=== PATIENT | male | born 1955 | race Hispanic/Latino ===

== ENCOUNTER 2016-12-13 16:18 | Emergency (ER) | payer MEDICAID ==
--- NOTE | 2016-12-13 19:35 | C.PDOC ---
History Of Present Illness 61 year old patient, with a past medical history of depression, COPD, anxiety, and hypertension, is brought to the ED by ambulance seeking detox from Suboxone. Patient states he hasn't taken it in 9 days. He complains of feeling weak and lethargic. Patient denies any shortness of breath, numbness, weakness, or any other complaints at this time. Time Seen by Provider: 12/13/16 19:26 Chief Complaint (Nursing): Substance Abuse History Per: Patient History/Exam Limitations: no limitations Onset/Duration Of Symptoms: Other Current Symptoms Are (Timing): Still Present Suicide/Self Injury Attempted (Context): None Modifying Factor(s): Other Severity: None Pain Scale Rating Of: 0 Associated Symptoms: Other Recent travel outside of the [place]: No Additional History Per: EMS Past Medical History Reviewed: Historical Data, Nursing Documentation, Vital Signs Vital Signs: Last Vital Signs Temp 98.2 F 12/13/16 19:41 Pulse 99 H 12/13/16 19:41 Resp 20 12/13/16 19:41 BP 140/86 12/13/16 19:41 Pulse Ox 96 12/13/16 19:41 - Medical History PMH: Anxiety, COPD, Depression, HTN Family History: States: Unknown Family Hx - Social History Hx Alcohol Use: Yes Hx Substance Use: No - Immunization History Hx Tetanus Toxoid Vaccination: No Hx Influenza Vaccination: No Hx Pneumococcal Vaccination: No Review Of Systems Except As Marked, All Systems Reviewed And Found Negative. Constitutional: Positive for: Weakness, Other (lethargic) Respiratory: Negative for: Shortness of Breath Neurological: Negative for: Weakness, Numbness Physical Exam - Physical Exam Appears: Non-toxic, No Acute Distress Skin: Warm, Dry Head: Atraumatic, Normacephalic Eye(s): bilateral: EOMI Ear(s): Bilateral: Normal Oral Mucosa: Moist Neck: Normal ROM, Supple Chest: Symmetrical Cardiovascular: Rhythm Regular Respiratory: Normal Breath Sounds, No Rales, No Rhonchi, No Wheezing Back: Normal Inspection, No CVA Tenderness Extremity: Normal ROM Neurological/Psych: Oriented x3, Normal Speech, Normal Cognition, Normal Cranial Nerves, Normal Motor, Normal Sensation Gait: Steady ED Course And Treatment O2 Sat by Pulse Oximetry: 96 (RA) Pulse Ox Interpretation: Normal Medical Decision Making Medical Decision Making: seeking detox from Suboxone, last dose 9 days ago no s/s of w/d now d/w Crisis- no Detox beds available now. Referred to opt f/u. Disposition Doctor Will See Patient In The: Office Counseled Patient/Family Regarding: Studies Performed, Diagnosis - Disposition Referrals: [facility] [Outside] [email or web address] [Outside] Disposition: HOME/ ROUTINE Disposition Time: 19:34 Condition: GOOD Additional Instructions: seek outpatient guidance from our [facility] Call for an appt. Instructions: Opioid Withdrawal (ED) - Clinical Impression Clinical Impression: Narcotic withdrawal - Scribe Statement The provider has reviewed the documentation as recorded by the Scribe Nallely Hahn Provider Attestation: All medical record entries made by the Scribe were at my direction and personally dictated by me. I have reviewed the chart and agree that the record accurately reflects my personal performance of the history, physical exam, medical decision making, and the department course for this patient. I have also personally directed, reviewed, and agree with the discharge instructions and disposition.
[2016-12-13 19:45] VITALS: BP 140/86; PULSE 99; RESP 20; TEMP 98.2; O2SAT 96
== END 2016-12-13 19:43 | disposition home or self-care (01) ==
LOC: C.ER 16:18
DX: F11.23 Opioid dependence with withdrawal (principal)